=== PATIENT | male | born 1970 | race Caucasian/White ===

== ENCOUNTER 2018-11-29 10:56 | Emergency (ER) | payer OTHER ==
[2018-11-29 13:53] LABS: ABS Basophils 0.1 10^3/ul (0-0.2); ABS Eosinophils 0.1 10^3/ul (0-0.6); ABS Lymphocytes 2.8 10^3/ul (1.0-4.8); ABS Monocytes 0.5 10^3/ul (0-0.8); ABS Neutrophils 3.7 10^3/ul (1.5-7.7); ABS Nucleated RBC 0 10^3/ul; Hematocrit 41 % (36-46); Hemoglobin 14.5 g/dL (14.0-18.0); Lymphocyte % 38.9 %; Mean Corpuscular HGB Conc 36 g/dL (31-36); Mean Corpuscular Hemoglobin 32 pg (27-31); Mean Corpuscular Volume 89 fL (80-94); Mean Platelet Volume 6.1 fL (7.4-10.4); Nucleated Red Blood Cells % 0.1; Platelet Count 349 10^3/uL (150-450); Red Blood Count 4.59 10^6 /uL (4.18-5.48); Red Cell Distribution Width 12 % (10.5-15); White Blood Count 7.2 10^3/uL (3.5-10.8)
[2018-11-29 14:15] LABS: ALT 15 U/L (7-52); AST 17 U/L (13-39); Albumin 4.5 g/dL (3.2-5.2); Albumin/Globulin Ratio 1.7 (1-3); Alkaline Phosphatase 102 U/L (34-104); Anion Gap 5 mmol/L (2-11); Blood Urea Nitrogen 17 mg/dL (6-24); C Reactive Protein 6.62 mg/L (<8.01); CO2 Carbon Dioxide 32 mmol/L (22-32); Calcium 9.6 mg/dL (8.6-10.3); Chloride 103 mmol/L (101-111); EGFR African American 123.6 (>60); EGFR Non-African American 102.1 (>60); Globulin 2.7 g/dL (2-4); Glucose 97 mg/dL (70-100); Potassium 4.2 mmol/L (3.5-5.0); Sodium 140 mmol/L (135-145); Total Protein 7.2 g/dL (6.4-8.9)
--- NOTE | 2018-11-29 15:19 | ED ---
Complex/Multi-Sys Presentation - HPI Summary HPI Summary: A 48 y/o M presents to ED with lightheadedness onset one week and still present. Lightheadedness described as "his head is imbalanced," fogginess, but he denies dizziness or feeling like he will fall over. Aggravating factors: nothing. Associated sx: mild abd pain (3/4 out of 10) onset one week ago which has since resolved, HILLS. Denies pedal edema, fever, chills, CP, SOB, n/v, urinary sx, bowel sx. He says he took a gas pill at onset of abd pain and woke up feeling better. He went to [facility] this AM for the lightheadedness, and it' s still present. He avoided coffee this AM, ate an orange and yogurt. He is a smoker. - History Of Current Complaint Chief Complaint: EDDizziness Time Seen by Provider: 11/29/18 15:04 Hx Obtained From: Patient Onset/Duration: Lasting Weeks, Still Present Timing: Constant Severity Currently: Mild Severity Initially: Mild Associated Signs And Symptoms: Positive: Headache, Abdominal Pain - mild, Other - pos: lightheadedness. neg: chills, urinary sx, bowel sx.. Negative: Dizziness , SOB, Chest Pain, Edema, Nausea, Vomiting, Fever - Allergies/Home Medications Allergies/Adverse Reactions: Allergies Allergy/AdvReac Type Severity Reaction Status Date / Time No Known Allergies Allergy Verified 07/19/13 11:55 PMH/Surg Hx/FS Hx/Imm Hx Previously Healthy: No Endocrine/Hematology History: Reports: Other Endocrine/Hematological Disorders - hypoglycemia Denies: Hx Diabetes Cardiovascular History: Reports: Hx Angina Denies: Hx Coronary Artery Disease, Hx Hypercholesterolemia, Hx Hypertension , Hx Myocardial Infarction, Hx Valvular Heart Disease Respiratory History: Reports: Hx Chronic Obstructive Pulmonary Disease (COPD) Denies: Hx Asthma Sensory History: Reports: Hx Contacts or Glasses - not with pt Opthamlomology History: Reports: Hx Contacts or Glasses - not with pt - Immunization History Date of Tetanus Vaccine: up to date, unable to recall Date of Influenza Vaccine: reaction, does not take Infectious Disease History: No Infectious Disease History: Denies: Traveled Outside the [place] in Last 30 Days - Family History Known Family History: Positive: Cardiac Disease - CAD - Social History Occupation: Employed Full-time Lives: With Family Alcohol Use: Occasionally Alcohol Amount: UNKNOWN Substance Use Type: Reports: None Smoking Status (MU): Heavy Every Day Tobacco Smoker Type: Cigarettes Amount Used/How Often: 1+ ppd Length of Time of Smoking/Using Tobacco: 20 years Have You Smoked in the Last Year: Yes Review of Systems Negative: Fever, Chills Negative: Chest Pain Negative: Shortness Of Breath Positive: Abdominal Pain. Negative: Vomiting, Nausea, Other - neg: bowel sx Negative: dysuria, hematuria Negative: Edema Neurological: Other - pos: lightheadedness. neg: dizziness Positive: Headache All Other Systems Reviewed And Are Negative: Yes Physical Exam - Summary Physical Exam Summary: Constitutional: Well-developed, Well-nourished, Alert. (-) Distressed Skin: Warm, Dry HENT: Normocephalic; Atraumatic Eyes: Conjunctiva normal Neck: Musculoskeletal ROM normal neck. (-) JVD, (-) Stridor, (-) Tracheal deviation Cardio: Rhythm regular, rate normal, Heart sounds normal; Intact distal pulses; The pedal pulses are 2+ and symmetric. Radial pulses are 2+ and symmetric. (-) Murmur Pulmonary/Chest wall: Effort normal. (-) Respiratory distress, (-) Wheezes, (-) Rales Abd: Soft, (-) tenderness, (-) Distension, (-) Guarding, (-) Rebound Musculoskeletal: (-) Edema Lymph: (-) Cervical adenopathy Neuro: Alert, Oriented x3. Psych: Mood and affect Normal Triage Information Reviewed: Yes Vital Signs On Initial Exam: Initial Vitals Temp Pulse Resp BP Pulse Ox 97.2 F 66 18 128/74 98 11/29/18 11:07 11/29/18 11:07 11/29/18 11:07 11/29/18 11:07 11/29/18 11:07 Vital Signs Reviewed: Yes - [place] Coma Scale Best Eye Response: 4 - Spontaneous Best Motor Response: 6 - Obeys Commands Best Verbal Response: 5 - Oriented Coma Scale Total: 15 Diagnostics - Vital Signs Vital Signs Temp Pulse Resp BP Pulse Ox 11/29/18 12:56 98.1 F 75 18 116/71 96 11/29/18 11:07 97.2 F 66 18 128/74 98 - Laboratory Lab Results: Lab Results 03/11/29/18 11/29/18 Range/Units 13:42 13:42 13:42 WBC 7.2 (3.5-10.8) 10^3/uL RBC 4.59 (4.18-5.48) 10^6 /uL Hgb 14.5 (14.0-18.0) g/dL Hct 41 (36-46) % MCV 89 (80-94) fL MCH 32 H (27-31) pg MCHC 36 (31-36) g/dL RDW 12 (10.5-15) % Plt Count 349 (150-450) 10^3/uL MPV 6.1 L (7.4-10.4) fL Neut % (Auto) 50.9 % Lymph % (Auto) 38.9 % [place] % (Auto) 7.5 % Eos % (Auto) 2.0 % Baso % (Auto) 0.7 % Absolute Neuts (auto) 3.7 (1.5-7.7) 10^3/ul Absolute Lymphs (auto) 2.8 (1.0-4.8) 10^3/ul Absolute Monos (auto) 0.5 (0-0.8) 10^3/ul Absolute Eos (auto) 0.1 (0-0.6) 10^3/ul Absolute Basos (auto) 0.1 (0-0.2) 10^3/ul Absolute Nucleated RBC 0 10^3/ul Nucleated RBC % 0.1 Sodium 140 (135-145) mmol/L Potassium 4.2 (3.5-5.0) mmol/L Chloride 103 (101-111) mmol/L Carbon Dioxide 32 (22-32) mmol/L Anion Gap 5 (2-11) mmol/L BUN 17 (6-24) mg/dL Creatinine 0.81 (0.67-1.17) mg/dL Est GFR ( Amer) 123.6 (>60) Est GFR (Non-Af Amer) 102.1 (>60) BUN/Creatinine Ratio 21.0 H (8-20) Glucose 97 (70-100) mg/dL Lactic Acid 0.5 (0.5-2.0) mmol/L Calcium 9.6 (8.6-10.3) mg/dL Total Bilirubin 0.40 (0.2-1.0) mg/dL AST 17 (13-39) U/L ALT 15 (7-52) U/L Alkaline Phosphatase 102 (34-104) U/L Troponin I 0.00 (<0.04) ng/mL C-Reactive Protein 6.62 (<8.01) mg/L Total Protein 7.2 (6.4-8.9) g/dL Albumin 4.5 (3.2-5.2) g/dL Globulin 2.7 (2-4) g/dL Albumin/Globulin Ratio 1.7 (1-3) Lipase < 10 L (11.0-82.0) U/L Result Diagrams: 11/29/18 13:42 11/29/18 13:42 Lab Statement: Any lab studies that have been ordered have been reviewed, and results considered in the medical decision making process. - CT BRAIN CT CT Interpretation Completed By: Radiologist Summary of CT Findings: IMPRESSION: No intracranial mass or hemorrhage. Maxillary sinusitis worse on the right than on the left. ED provider has reviewed this report. - EKG 1507 Cardiac Rate: Bradycardia - 59 bpm EKG Rhythm: Sinus Bradycardia Summary of EKG Findings: Sinus maurizio at 59 bpm, normal [place], normal QRS, normal QTc, normal axis, normal ST, normal T-waves, non-specific EKG. National Institutes Of Health - NIH Scale Level of Consciousness: Alert/Keenly Responsive Ask Patient the Month and His/Her Age: Both Correct Ask Pt to Open/Close Eyes and Assistant Grocery/Release Non-Paretic Hand: Both Correctly Best Gaze (Only Horizontal Eye Movement): Normal Visual Field Testing: No Visual Loss Facial Paresis-Pt to Smile & Close Eyes or Grimace Symmetry: Normal/Symmetrical Motor Function - Right Arm: No Drift-Holds 10 Seconds Motor Function - Left Arm: No Drift-Holds 10 Seconds Motor Function - Right Leg: No Drift-Holds 10 Seconds Motor Function - Left Leg: No Drift-Holds 10 Seconds Limb Ataxia-Must be out of Proportion to Weakness Present: Absent Sensory (Use Pinprick to Test Arms/Legs/Trunk/Face): Normal Best Language (Describe Picture, Name Items): No Aphasia Dysarthria (Read Several Words): Normal Extinction and Inattention: No Abnormality Total Score: 0 Re-Evaluation - Re-Evaluation 1 Re-Evaluation Time: 16:45 Change: Unchanged Comment: Discussing CT results with pt. Complex Multi-Symp Course/Dx Course Of Treatment: Pt is a 48 y/o M presenting with lightheadedness described as fogginess, abd pain, [place] onset one week. Abd pain has resolved. PE is unremarkable. Brain CT shows "No intracranial mass or hemorrhage. Maxillary sinusitis worse on the right than on the left." Lab work is unremarkable except for MCH: 32, MPV: 6.1, BUN/C ratio: 21, Lipase under 10. EKG shows sinus maurizio at 59 bpm, it is a non-specific EKG. Pt will be discharged with Meclizine. Discharge - Sign-Out/Discharge Documenting (check all that apply): Patient Departure - D/C Patient Received Moderate/Deep Sedation with Procedure: No - Discharge Plan Condition: Stable Disposition: HOME Prescriptions: Meclizine TAB* [Antivert 12.5 TAB*] 25 mg PO TID PRN #10 tab PRN Reason: Dizziness Patient Education Materials: Vertigo (ED), Abdominal Pain (ED) Print Language: [place] Referrals: Elham Ervin MD [Primary Care Provider] - - Attestation Statements Document Initiated by Scribe: Yes Documenting Scribe: Charity Nuñez Provider For Whom Scribe is Documenting (Include Credential): Dr. Corrina Pratt MD Scribe Attestation: Michelle, Charity Nuñez, scribed for Dr. Corrina Pratt MD on at 1910. Status of Scribe Document: Ready
[2018-11-29 17:06] VITALS: BP 115/67
== END 2018-11-29 17:05 | disposition home or self-care (01) ==
LOC: ED 10:56
DX: R10.9 Unspecified abdominal pain (principal); R42 Dizziness and giddiness; R51 Headache; J44.9 Chronic obstructive pulmonary disease, unspecified; F17.210 Nicotine dependence, cigarettes, uncomplicated
CPT/HCPCS: 36415; 70450; 80053; 83605; 83690; 84484; 85025; 86140; 93005; 99282